=== PATIENT | male | born 1965 | race Caucasian/White ===

== ENCOUNTER 2017-04-23 00:36 | Inpatient (IN) | payer SELFPAY ==
[~2017-04-23] VITALS: Ht 175.3 cm; Wt 80.5 kg
[2017-04-23] VITALS (10 sets, daily range): BP systolic 113–147; BP diastolic 61–94; PULSE 82–115; RESP 14–22; TEMP 97.3–97.9; O2SAT 96–100
[2017-04-23 01:36] LABS: BILIRUBIN, URINE NEG (NEG); BLOOD, URINE NEG (NEG); GLUCOSE,URINE NEG (NEG); KETONE, URINE NEG (NEG); NITRITE,URINE NEG (NEG); URINE COLOR LIGHT-YELLOW (YELLW/STRAW); URINE LEUKOCYTE ESTERASE NEG (NEG)
--- NOTE | 2017-04-23 01:37 | PD ---
HPI Chief Complaint: Skin Problem Time Seen by Provider: 00:48 Travel History International Travel<30 days: No Contact w/Intl Traveler<30days: No Traveled to known affect area: No History of Present Illness HPI The patient is a 51 year old male who presents to the [facility] emergency department with a history of skin abscess to the right forearm that he first noticed 31/2-4 weeks ago. He denies ever having an MRSA skin infection in the past, however his girlfriend is currently admitted to the hospital with a severe MRSA skin infection involving both arms. The patient reports that over the last week he's had intermittent fevers with a MAXIMUM TEMPERATURE of 101. Patient reports that yesterday he had nausea and vomiting several times, however no vomiting today. He reports that 3-4 days ago he had diarrhea, however none since then. He denies having any chest pain, chest pressure, or shortness of breath. He reports that he does use IV drugs. His last use was Dilaudid yesterday. He denies ever being diagnosed with hepatitis C or HIV. The patient reports that he also has an alcohol abuse problem. He reports that he drinks between 3 and 8 pints of beer daily. On review of systems, the patient denies having any cough or congestion, neck pain, abdominal pain, or neurologic symptoms. The patient reports that he has been intermittently experiencing urinary hesitancy and dysuria. 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 He reports that the medial one near his elbow was improving, however the one along the ventral forearm has greatly worsened and is draining a yellow drainage. He reports that he has increased edema to the forearm. [facility] Past Medical History Narrative Medical the patient's past medical history is significant for bipolar disorder, posttraumatic stress disorder, substance abuse, traumatic brain injury 2 alcohol abuse. Bipolar Disorder: Yes Medical other: Yes (HYPOGLYCEMIA) Musculoskeletal: Yes (SKULL FX) Neurologic: Yes Tetanus Vaccination: > 5 Years Past Surgical History Surgical History: No Previous Surgery Social History Alcohol Use: Yes (2-8 PINTS [employer] DAILY) Tobacco Use: Yes (2PPD) Substance Use: Yes (HEROIN/DILAUDID IV ) Allergies-Medications (Allergen,Severity, Reaction): Coded Allergies: No Known Allergies (Unverified , 04/23/17) Review of Systems Except as stated in HPI: all other systems reviewed are Neg General / Constitutional: Positive: Fever Eyes: No: Visual changes HENT: No: Headaches Cardiovascular: No: Chest Pain or Discomfort, Dyspnea on exertion Respiratory: No: Shortness of Breath Gastrointestinal: Positive: Nausea, Vomiting, Diarrhea, No: Abdominal Pain Genitourinary: No: Dysuria Musculoskeletal: Positive: Edema, Pain Skin: Positive Rash Neurologic: No: Weakness, Focal Abnormalities, Change in Mentation, Slurred Speech, Sensory Disturbance Psychiatric: No: Depression Endocrine: No: Polydipsia Hematologic/Lymphatic: No: Easy Bruising Physical Exam Narrative General: The patient is a well-developed well-nourished male in no acute distress. Head and Neck exam: Head is normocephalic atraumatic. Eyes: EOMI, pupils are equal round and reactive to light. Nose: Midline septum with pink mucous membranes Mouth: Dentition unremarkable. Moist mucus membranes. Posterior oropharynx is not erythematous. No tonsillar hypertrophy. Uvula midline. Airway patent. Neck: No palpable lymphadenopathy. No nuchal rigidity. No thyromegaly. Cardiovascular: Sinus tachycardia in the 1 teens without murmurs, gallops, or rubs. No pulse deficit to the extremities on simultaneous auscultation and palpation of his radial artery. Lungs: Clear to auscultation bilaterally. No wheezes, rhonchi, or rales. Abdomen: Soft, without tenderness to palpation in all 4 quadrants of the abdomen. No guarding, rebound, or rigidity. Normal bowel sounds are audible. No tenderness on palpation of McBurney's point. Extremities: No clubbing, cyanosis, or edema, except an area of interest, the right upper extremity there is noted to be edema. The patient also has erythema of the forearm with warmth and tenderness on palpation. The patient has a dirty bandage noted to be in place. This was removed. The patient was noted to have a long the ventral forearm an opening that is approximately 2 cm with purulent drainage. This was cultured. The patient additionally along the medial aspect of the forearm near the elbow has a 1 cm wound that is draining. Both of these sites he reports that he incised and drained yesterday. 2+ pulses in all 4 extremities. The patient's compartments are soft on palpation. Back: No spinous process tenderness to palpation. No costovertebral angle tenderness to palpation. Neurologic Exam: Grossly nonfocal. Skin Exam: No other rash noted. Intact skin that is warm and dry. Data Data Last Documented VS Vital Signs Date Time Temp Pulse Resp B/P (MAP) Pulse Ox O2 Delivery O2 Flow Rate FiO2 04/23/17 03:00 97 16 113/62 (79) 97 Room Air 04/23/17 00:37 97.9 Orders Orders Complete Blood Count With Diff (04/23/17 01:06) Comprehensive Metabolic Panel (04/23/17 01:06) Prothrombin Time / Inr (Pt) (04/23/17 01:06) Act Partial Throm Time (Ptt) (04/23/17 01:06) Blood Culture (04/23/17 01:06) C-Reactive Protein (Crp) (04/23/17 01:06) Lipase (04/23/17 01:06) Urinalysis - C+S If Indicated (04/23/17 01:06) Magnesium (Mg) (04/23/17 01:06) Wound Culture And Gram Stain (04/23/17 01:06) Chest, Single Ap (04/23/17 01:06) Iv Access Insert/Monitor (04/23/17 01:06) Ecg Monitoring (04/23/17 01:06) Oximetry (04/23/17 01:06) Drug Screen, Random Urine (04/23/17 01:06) Alcohol (Ethanol) (04/23/17 01:06) Lactic Acid Sepsis Protocol (04/23/17 02:32) Piperacil-Tazo 3.375 Gm Premix (Zosyn 3. (04/23/17 02:45) Vancomycin Inj (Vancomycin Inj) (04/23/17 02:45) Sodium Chlor 0.9% 1000 Ml Inj (Ns 1000 M (04/23/17 02:45) Vancomycin Inj (Vancomycin Inj) (04/23/17 03:00) Admit Order (Ed Use Only) (04/23/17 03:29) Labs Laboratory Tests Test 04/23/17 01:10 04/23/17 02:45 White Blood Count 16.2 TH/MM3 Red Blood Count 4.93 MIL/MM3 Hemoglobin 15.2 GM/DL Hematocrit 44.0 % Mean Corpuscular Volume 89.3 FL Mean Corpuscular Hemoglobin 30.9 PG Mean Corpuscular Hemoglobin Concent 34.6 % Red Cell Distribution Width 14.3 % Platelet Count 270 TH/MM3 Mean Platelet Volume 8.3 FL Neutrophils (%) (Auto) 85.9 % Lymphocytes (%) (Auto) 7.5 % Monocytes (%) (Auto) 5.7 % Eosinophils (%) (Auto) 0.5 % Basophils (%) (Auto) 0.4 % Neutrophils # (Auto) 13.9 TH/MM3 Lymphocytes # (Auto) 1.2 TH/MM3 Monocytes # (Auto) 0.9 TH/MM3 Eosinophils # (Auto) 0.1 TH/MM3 Basophils # (Auto) 0.1 TH/MM3 CBC Comment DIFF FINAL Differential Comment Prothrombin Time 10.4 SEC Prothromb Time International Ratio 1.0 RATIO Activated Partial Thromboplast Time 28.9 SEC Urine Color LIGHT-YELLOW Urine Turbidity CLEAR Urine pH 7.0 Urine Specific [place] 1.001 Urine Protein NEG mg/dL Urine Glucose (UA) NEG mg/dL Urine Ketones NEG mg/dL Urine Occult Blood NEG Urine Nitrite NEG Urine Bilirubin NEG Urine Urobilinogen LESS THAN 2.0 MG/DL Urine Leukocyte Esterase NEG Microscopic Urinalysis Comment CULT NOT INDICATED Blood Urea Nitrogen 6 MG/DL Creatinine 0.69 MG/DL Random Glucose 83 MG/DL Total Protein 7.2 GM/DL Albumin 3.0 GM/DL Calcium Level 8.1 MG/DL Magnesium Level 2.2 MG/DL Alkaline Phosphatase 112 U/L Aspartate Amino Transf (AST/SGOT) 30 U/L Alanine Aminotransferase (ALT/SGPT) 25 U/L Total Bilirubin 0.3 MG/DL Sodium Level 142 MEQ/L Potassium Level 3.4 MEQ/L Chloride Level 107 MEQ/L Carbon Dioxide Level 28.4 MEQ/L Anion Gap 7 MEQ/L Estimat Glomerular Filtration Rate 121 ML/MIN Protein Corrected Calcium 8.1 MG/DL C-Reactive Protein 17.20 MG/DL Lipase 160 U/L Urine Opiates Screen NEG Urine Barbiturates Screen NEG Urine Amphetamines Screen NEG Urine Benzodiazepines Screen NEG Urine Cocaine Screen NEG Urine Cannabinoids Screen NEG Ethyl Alcohol Level 91 MG/DL Lactic Acid Level 1.3 mmol/L [facility] Medical Decision Making Medical Screen Exam Complete: Yes Emergency Medical Condition: Yes Medical Record Reviewed: Yes Differential Diagnosis Cellulitis with abscess, versus draining abscess, versus MRSA, versus sepsis, versus bacteremia, versus compartment syndrome Narrative Course During the course of the patients emergency department visit, the patients history, examination, and differential diagnosis were reviewed with the patient. The patient was placed on a cafeteria monitor with oximetry and frequent blood pressure monitoring. The patient had IV access obtained and blood work sent for analysis. The patient was initially provided Zosyn and vancomycin IV, normal saline IV fluids The patients laboratory studies were reviewed and remarkable for a white count of 16.2, hemoglobin 15.2, platelets 270 with 85.9 neutrophils, CMP is remarkable for potassium of 3.4, BUN 6, calcium 8.1, C-reactive protein is 17.2 , lipase 160, PT 10.4, PTT 28.9, urinalysis is unremarkable, urine drug screen is negative, alcohol level XCI Radiology studies were reviewed and remarkable for a chest x-ray that shows mild cardiomegaly, no other acute cardiopulmonary disease. The patients results were discussed with the patient, including the plan of care. I explained that further testing and/ or monitoring is indicated based on the patients history, examination, and/ or laboratory findings. Therefore, I recommended admission for additional evaluation. The patient expressed understanding and was agreeable with this plan. The patient was admitted to the hospital in stable condition and sent to a bed under the care of the [facility] service. Sepsis Criteria SIRS Criteria (2 or more): Heart rate over 90, WBC > 89734, < 4000 or > 10% bands Sepsis Criteria (SIRS+source): Infect source susp/known Criteria Outcome: Meets SIRS criteria, Meets sepsis criteria Physician Communication Physician Communication The patient's case including history, pertinent physical examination findings, and laboratory studies were discussed with Dr. Avila. It was agreed that the patient would be admitted to the [facility] service. Diagnosis Primary Impression: Abscess Additional Impressions: Sepsis Qualified Codes: A41.9 - Sepsis, unspecified organism Cellulitis Qualified Codes: L03.113 - Cellulitis of right upper limb Admitting Information Admitting Physician Requests: it Yenifer Moreno MD Apr 23, 2017 01:37
[2017-04-23 01:41] LABS: AUTOMATED NEUTROPHIL # 13.9 TH/MM3 (1.8-7.7); BASOPHIL # 0.1 TH/MM3 (0-0.2); BASOPHIL % 0.4 % (0.0-2.0); EOSINOPHIL # 0.1 TH/MM3 (0-0.4); EOSINOPHIL % 0.5 % (0.0-4.0); HEMOGLOBIN 15.2 GM/DL (13.0-17.0); LYMPH % 7.5 % (9.0-44.0); LYMPHOCYTE # 1.2 TH/MM3 (1.0-4.8); MEAN CELL VOLUME 89.3 FL (80.0-100.0); MEAN CORPUSCULAR HEMOGLOBIN 30.9 PG (27.0-34.0); MEAN CORPUSCULAR HGB CONC 34.6 % (32.0-36.0); MEAN PLATELET VOLUME 8.3 FL (7.0-11.0); MONO % 5.7 % (0.0-8.0); MONOCYTE # 0.9 TH/MM3 (0-0.9); NEUT % 85.9 % (16.0-70.0); PLATELET COUNT 270 TH/MM3 (150-450); RED BLOOD COUNT 4.93 MIL/MM3 (4.50-5.90); RED CELL DISTRIBUTION WIDTH 14.3 % (11.6-17.2); WHITE BLOOD COUNT 16.2 TH/MM3 (4.0-11.0)
[2017-04-23 01:47] LABS: PROTHROMBIN TIME - PATIENT 10.4 SEC (9.8-11.6)
--- NOTE | 2017-04-23 01:47 | RADRPT ---
EXAM DATE/TIME: 04/23/2017 01:19 [place] COMPARISON: No previous studies available for comparison. INDICATIONS : Fever after lancing abscess at home MEDICAL HISTORY : MRSA SURGICAL HISTORY : None. ENCOUNTER: Initial ACUITY: 1 day PAIN SCORE: 7/10 LOCATION: Bilateral chest FINDINGS: The heart size is mildly enlarged. The lungs are grossly clear. No effusion is seen. CONCLUSION: Mild cardiomegaly. Luis Carlos Mcgovern MD on April 23, 2017 at 1:44 Board Certified Radiologist. This report was verified electronically.
[2017-04-23 01:49] LABS: ALT (GPT) 25 U/L (12-78); AST (GOT) 30 U/L (15-37); BICARBONATE 28.4 MEQ/L (21.0-32.0); BLOOD UREA NITROGEN 6 MG/DL (7-18); CALCIUM 8.1 MG/DL (8.5-10.1); CHLORIDE 107 MEQ/L (98-107); CREATININE 0.69 MG/DL (0.60-1.30); GLOMERULAR FILTRATION RATE 121 ML/MIN (>89); GLUCOSE,RANDOM 83 MG/DL (74-106); LIPASE 160 U/L (73-393); MAGNESIUM 2.2 MG/DL (1.5-2.5); SODIUM (NA) 142 MEQ/L (136-145)
[2017-04-23 01:53] LABS: ALKALINE PHOSPHATASE 112 U/L (45-117); TOTAL BILIRUBIN ADULT 0.3 MG/DL (0.2-1.0); TOTAL PROTEIN 7.2 GM/DL (6.4-8.2)
[2017-04-23] MEDS ORDERED: VANCOMYCIN INJ 200 ML IV SCH (02:45)
[2017-04-23] MEDS ORDERED: VANCOMYCIN INJ 200 ML IV ONE (02:45)
[2017-04-23] MEDS ORDERED: SODIUM CHLOR 0.9% 1000 ML INJ 1,000 ML IV ONE (02:45)
[2017-04-23] MEDS ORDERED: PIPERACIL-TAZO 3.375 GM PREMIX 50 ML IV ONE (02:45)
[2017-04-23] MEDS ORDERED: VANCOMYCIN 1,000 MG/NS 250 ML IV ONE ×2 (03:00)
[2017-04-23] MEDS ORDERED: LORazepam 2 MG TAB PO PRN (03:45)
[2017-04-23] MEDS ORDERED: MAGNESIUM HYDROXIDE SUSP 30 ML CUP PO PRN (03:45)
[2017-04-23] MEDS ORDERED: BISACODYL 10 MG SUPP RECTAL PRN (03:45)
[2017-04-23] MEDS ORDERED: HALOPERIDOL LACTATE 5 MG/ML AMP IM PRN (03:45)
[2017-04-23] MEDS ORDERED: SODIUM CHLORIDE 0.9% FLUSH 10 ML FLUSH IV FLUSH PRN (03:45)
[2017-04-23] MEDS ORDERED: LACTULOSE SYRUP 20 GM/30 ML CUP PO PRN (03:45)
[2017-04-23] MEDS ORDERED: LORazepam 1 MG TAB PO PRN (03:45)
[2017-04-23] MEDS ORDERED: FLUMAZENIL 0.5 MG/5 ML VIAL IV PUSH PRN (03:45)
[2017-04-23] MEDS ORDERED: ONDANSETRON HCL 4 MG/2 ML VIAL IVP PRN (03:45)
[2017-04-23] MEDS ORDERED: SENNOSIDES 8.6 MG TAB PO PRN (03:45)
[2017-04-23] MEDS ORDERED: LORazepam 2 MG/ML VIAL IV PUSH PRN ×4 (03:45)
[2017-04-23] MEDS ORDERED: ACETAMINOPHEN 325 MG TAB PO PRN (03:45)
[2017-04-23] MEDS ORDERED: Vancomycin Consult Pharmacy 1 EA OTHER SCH (03:45)
--- NOTE | 2017-04-23 04:37 | HHI.HP ---
[facility] No Primary Care Physician Admission Diagnosis right arm cellulitis with draining abscess Diagnoses: (1) Sepsis Diagnosis: Principal (2) Abscess Diagnosis: Principal (3) IVDU (intravenous drug user) Diagnosis: Principal (4) Alcohol abuse Diagnosis: Principal (5) Tobacco abuse Diagnosis: Principal Travel History International Travel<30 Days: No Contact w/Intl Traveler <30 Da: No Traveled to Known Affected Are: No History of Present Illness This is a 51-year-old Homeless male with a PMH of Bipolar Disorder, Alcohol Abuse, Tobacco Abuse and IVDU who presented to the ER with complaints of right arm abscess. States abscess present for approx 3 wks, girlfriend w/ similar symptoms is currently admitted for MRSA. Cannot recall if he injected drugs at that site, last IVDU yesterday. States pain/swelling has gotten progressively worse, now w/ Temp 101.0. Pain constant, severe, 8/10, non-radiating. 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 On arrival, BP 134/89, HR 1:15, O2 sat 100% on RA , Afebrile. W WBC 16.2. Chemistry essentially unremarkable except for elevated CRP. Lactic Acid normal. Her 1.0. UA negative. Urine Drug Screen negative. Alcohol 91. CXR with mild cardiomegaly. S/p Blood Cultures, Vanc/ Zosyn in ER. Review of Systems Except as stated in HPI: all other systems reviewed are Neg ROS: 14 point review of systems otherwise negative. Past Family Social History Past Medical History PMH: Bipolar Disorder, Alcohol Abuse, Tobacco Abuse and IVDU Past Surgical History PAST SURGICAL HISTORY: None Allergies: Coded Allergies: No Known Allergies (Unverified , 04/23/17) Family History PAST FAMILY HISTORY: Reviewed. No h/o DM or CAD Social History PAST SOCIAL HISTORY: Drinks 2-8 Pints of beer per day. Smokes 2ppd. +IVDU w/ Heroin/Dilaudid. Physical Exam Vital Signs Vital Signs Date Time Temp Pulse Resp B/P (MAP) Pulse Ox O2 Delivery O2 Flow Rate FiO2 04/23/17 03:00 97 16 113/62 (79) 97 Room Air 04/23/17 02:00 100 16 115/67 (83) 96 Room Air 04/23/17 00:37 97.9 115 18 134/89 (104) 100 Room Air Physical Exam PE: GENERAL: Middle-aged white male in no acute distress. +facial sunburn. HEENT: PERRLA, EOMI. No scleral icterus or conjunctival pallor. No lid lag or facial droop. CARDIOVASCULAR: Regular rate and rhythm. No obvious murmurs to auscultation. No chest tenderness to palpation. RESPIRATORY: No obvious rhonchi or wheezing. Clear to auscultation. Breath sounds equal bilaterally. GASTROINTESTINAL: Abdomen soft, non-tender, nondistended. BS normal. MUSCULOSKELETAL: Extremities without clubbing, cyanosis, or edema. No obvious deformities. RUE w/ open wound to forearm, purulent drainage, surrounding erythema/edema. LUE w/ erythematous induration to forearm, surrounding edema. Pulses intact. NEUROLOGICAL: Awake, alert and oriented x4. No focal neurologic deficits. Moving both upper and lower extremities spontaneously. Laboratory Laboratory Tests Test 04/23/17 01:10 04/23/17 02:45 White Blood Count 16.2 Red Blood Count 4.93 Hemoglobin 15.2 Hematocrit 44.0 Mean Corpuscular Volume 89.3 Mean Corpuscular Hemoglobin 30.9 Mean Corpuscular Hemoglobin Concent 34.6 Red Cell Distribution Width 14.3 Platelet Count 270 Mean Platelet Volume 8.3 Neutrophils (%) (Auto) 85.9 Lymphocytes (%) (Auto) 7.5 Monocytes (%) (Auto) 5.7 Eosinophils (%) (Auto) 0.5 Basophils (%) (Auto) 0.4 Neutrophils # (Auto) 13.9 Lymphocytes # (Auto) 1.2 Monocytes # (Auto) 0.9 Eosinophils # (Auto) 0.1 Basophils # (Auto) 0.1 CBC Comment DIFF FINAL Differential Comment Prothrombin Time 10.4 Prothromb Time International Ratio 1.0 Activated Partial Thromboplast Time 28.9 Urine Color LIGHT-YELLOW Urine Turbidity CLEAR Urine pH 7.0 Urine Specific [place] 1.001 Urine Protein NEG Urine Glucose (UA) NEG Urine Ketones NEG Urine Occult Blood NEG Urine Nitrite NEG Urine Bilirubin NEG Urine Urobilinogen LESS THAN 2.0 Urine Leukocyte Esterase NEG Microscopic Urinalysis Comment CULT NOT INDICATED Blood Urea Nitrogen 6 Creatinine 0.69 Random Glucose 83 Total Protein 7.2 Albumin 3.0 Calcium Level 8.1 Magnesium Level 2.2 Alkaline Phosphatase 112 Aspartate Amino Transf (AST/SGOT) 30 Alanine Aminotransferase (ALT/SGPT) 25 Total Bilirubin 0.3 Sodium Level 142 Potassium Level 3.4 Chloride Level 107 Carbon Dioxide Level 28.4 Anion Gap 7 Estimat Glomerular Filtration Rate 121 C-Reactive Protein 17.20 Lipase 160 Urine Opiates Screen NEG Urine Barbiturates Screen NEG Urine Amphetamines Screen NEG Urine Benzodiazepines Screen NEG Urine Cocaine Screen NEG Urine Cannabinoids Screen NEG Ethyl Alcohol Level 91 Lactic Acid Level 1.3 Date/Time Source Procedure Growth Status 04/23/17 01:20 Blood Peripheral Aerobic Blood Culture Pending Received 04/23/17 01:20 Blood Peripheral Anaerobic Blood Culture Pending Received 04/23/17 01:20 Wound Arm Gram Stain Pending Received 04/23/17 01:20 Wound Arm Wound Culture Pending Received Result Diagram: 04/23/1710904/23/17 0110 Caprini VTE Risk Assessment Caprini VTE Risk Assessment: No/Low Risk (score <= 1) Caprini Risk Assessment Model Point Value = 1 Point Value = 2 Point Value = 3 Point Value = 5 Age 41-60 Minor surgery BMI > 25 kg/m2 Swollen legs Varicose veins or History of unexplained or recurrent spontaneous Oral contraceptives or hormone replacement Sepsis (< 1 month) Serious lung disease, including pneumonia (< 1 month) Abnormal pulmonary function Acute myocardial infarction Congestive heart failure (< 1 month) History of inflammatory bowel disease Medical patient at bed rest Age 61-74 Arthroscopic surgery Major open surgery (> 45 min) Laparoscopic surgery (> 45 min) Malignancy Confined to bed (> 72 hours) Immobilizing plaster cast Central venous access Age >= 75 History of VTE Family history of VTE Factor V Leiden Prothrombin [id number] Lupus anticoagulant Anticardiolipin antibodies Elevated serum homocysteine Heparin-induced thrombocytopenia Other congenital or acquired thrombophilia Stroke (< 1 month) Elective arthroplasty Hip, pelvis, or leg fracture Acute spinal cord injury (< 1 month) Prophylaxis Regimen Total Risk Factor Score Risk Level Prophylaxis Regimen 0-1 Low Early ambulation 2 Moderate Order ONE of the following: *Sequential Compression Device (SCD) *Heparin 5000 units SQ BID 3-4 Higher Order ONE of the following medications: *Heparin 5000 units SQ TID *Enoxaparin/Lovenox 40 mg SQ daily (WT < 150 kg, CrCl > 30 mL/min) *Enoxaparin/Lovenox 30 mg SQ daily (WT < 150 kg, CrCl > 10-29 mL/min) *Enoxaparin/Lovenox 30 mg SQ BID (WT < 150 kg, CrCl > 30 mL/min) AND/OR *Sequential Compression Device (SCD) 5 or more Highest Order ONE of the following medications: *Heparin 5000 units SQ TID (Preferred with Epidurals) *Enoxaparin/Lovenox 40 mg SQ daily (WT < 150 kg, CrCl > 30 mL/min) *Enoxaparin/Lovenox 30 mg SQ daily (WT < 150 kg, CrCl > 10-29 mL/min) *Enoxaparin/Lovenox 30 mg SQ BID (WT < 150 kg, CrCl > 30 mL/min) AND *Sequential Compression Device (SCD) Assessment and Plan Problem List: (1) Sepsis ICD Code: A41.9 - Sepsis, unspecified organism (2) Abscess ICD Code: L02.91 - Cutaneous abscess, unspecified (3) Alcohol abuse ICD Code: F10.10 - Alcohol abuse, uncomplicated (4) IVDU (intravenous drug user) ICD Code: F19.90 - Other psychoactive substance use, unspecified, uncomplicated (5) Tobacco abuse ICD Code: Z72.0 - Tobacco use Assessment and Plan A/P: 1. Sepsis: Temp 101.0, HR 115, WBC 16.2, Source-RUE Abscess. S/p Blood/Wound Cultures, Vanc/Zosyn in ER. Follow up cultures, continue w/ IV Abx, IVF for hydration. 2. Abscess: RUE abscess, s/p I&D by patient, +purulent drainage, follow up cultures. LUE forearm w/ area of erythema/induration, not amenable to I&D at this time. Continue w/ IV Abx, Consult Gen Sx as needed for further I&D 3. Alcohol Abuse: Drinks 2-8 pints of beer/day. High risk for withdrawal. CIWA, Seizure Precautions, MVT/Thiamine/Folate 4. IVDU: last use yesterday, however UDS negative. Ativan prn for withdrawal. 5. Tobacco Abuse: Pt counselled. NicoDerm prn 6. DVT Prophylaxis: SCD/Teds. 7. Social work for DC planning as needed. 8. Case discussed at length with ER physician, labs/imaging/records reviewed by me. Physician Certification 2 Midnight Certification Type: Admission for Inpatient Services Order for Inpatient Services The services are ordered in accordance with Medicare regulations or non- Medicare payer requirements, as applicable. In the case of services not specified as inpatient-only, they are appropriately provided as inpatient services in accordance with the 2-midnight benchmark. Estimated LOS (days): 2 days is the estimated time the patient will need to remain in the hospital, assuming treatment plan goals are met and no additional complications. Post-Hospital Plan: Not yet determined Jocelyn Avila MD Apr 23, 2017 04:37
[2017-04-23] MEDS: SODIUM CHLOR 0.9% 1000 ML INJ 1,000 ML IV SCH ×3 (04:59→16:50)
[2017-04-23] MEDS: cloNIDine HCL 0.1 MG TAB PO SCH ×2 (06:00→13:53)
[2017-04-23] MEDS: DOCUSATE SODIUM 50 MG/SENNA 8.6 MG TAB PO SCH ×2 (09:00→20:14)
[2017-04-23] MEDS ORDERED: POTASSIUM CHLORIDE 10 MEQ CONTROLLED RELEASE TAB PO ONE (09:00)
[2017-04-23] MEDS: SODIUM CHLORIDE 0.9% FLUSH 10 ML FLUSH IV FLUSH SCH ×2 (09:00→20:14)
[2017-04-23] MEDS ORDERED: CEFEPIME INJ 1,000 MG in SODIUM CHLORIDE 0.9% INJ 100 ML IV SCH (09:00)
[2017-04-23] MEDS: FOLIC ACID 1 MG TAB PO SCH (09:51)
[2017-04-23] MEDS: MULTIVITAMINS/MINERALS THERAPEUTIC TAB PO SCH (09:51)
[2017-04-23] MEDS: THIAMINE HCL 100 MG TAB PO SCH (09:52)
[2017-04-23 10:53] LABS: CALCIUM 8.1 MG/DL (8.5-10.1); CALCIUM-PROTEIN CORRECTED 8.1 MG/DL (8.5-10.1); TOTAL PROTEIN 7.2 GM/DL (6.4-8.2)
[2017-04-23] MEDS: NICOTINE 21 MG/24 HR PATCH T-DERMAL PRN (11:47)
[2017-04-23] MEDS: PIPERACIL-TAZO 4.5 GM PREMIX 100 ML IV SCH ×2 (13:53→20:14)
--- NOTE | 2017-04-23 14:26 | HHI.PR ---
Subjective Remarks Follow-up on patient with right forearm abscess. Patient seen and examined. Patient admits to IV drug use last used on Sunday. He is unsure whether or not he injected himself in his arm over the area of abscess. He is complaining of pain, swelling and redness in the right arm. Reports feeling feverish. Patient states he performed his own I&D of the right forearm with purulent drainage from the wound. Patient denies any chest pain or shortness of breath. Denies any nausea or vomiting. Objective Vitals Vital Signs Date Time Temp Pulse Resp B/P (MAP) Pulse Ox O2 Delivery O2 Flow Rate FiO2 04/23/17 13:30 88 18 147/94 (111) 98 Room Air 04/23/17 13:08 18 04/23/17 08:26 88 18 114/63 (80) 98 Room Air 04/23/17 07:26 91 18 114/82 (93) 97 Room Air 04/23/17 06:42 91 14 114/61 (78) 98 Room Air 04/23/17 03:00 97 16 113/62 (79) 97 Room Air 04/23/17 02:00 100 16 115/67 (83) 96 Room Air 04/23/17 00:37 97.9 115 18 134/89 (104) 100 Room Air I/O 04/22/17 04/22/17 04/22/17 04/23/17 04/23/17 04/23/17 06:59 14:59 22:59 06:59 14:59 22:59 Intake Total 1300 ml Balance 1300 ml Intake IV Total 1300 ml Result Diagram: 04/23/17 0110 04/23/17 0110 Imaging Last Impressions Chest X-Ray 04/23/17 0106 Signed Impressions: Service Date/Time: Sunday, April 23, 2017 01:19 - CONCLUSION: Mild cardiomegaly. Luis Carlos Mcgovern MD Objective Remarks GENERAL: Well-nourished, well-developed male patient in NAD. Awake and alert. SKIN: Warm and dry. HEAD: Normocephalic. Atraumatic. EYES: EOMI. No scleral icterus. No injection or drainage. ENT: No nasal bleeding or discharge. Mucous membranes pink and moist. NECK: Supple. Trachea midline. CARDIOVASCULAR: Regular rate and rhythm. S1, S2 noted. No murmur appreciated. RESPIRATORY: Nonlabored. Coarse BS. GASTROINTESTINAL: Abdomen soft, non-tender, nondistended. Normoactive bowel sounds x4. MUSCULOSKELETAL: No obvious deformities. Right forearm diffusely edematous extending into the digits of the right hand. 3 x 3 cm open wound noted on the volar aspect of right forearm with purulent drainage, warmth and surrounding erythema extending into the right hand. Patient is also noted to have a 2x2cm area of induration on the volar aspect of the left forearm which is erythematous , edematous and warm to touch. NEUROLOGICAL: Awake and alert. No obvious cranial nerve deficits. Motor grossly within normal limits. 5/5 muscle strength in bilateral upper and lower extremities. Normal speech. PSYCHIATRIC: Appropriate mood and affect. Medications and IVs Current Medications Medications (Trade) Dose Ordered Sig/Maxwell Route Start Time Stop Time Status Last Admin (Folate) 1 mg DAILY PO 04/23/17 09:00 04/28/17 08:59 04/23/17 09:51 (Vitamin B1) 100 mg DAILY PO 04/23/17 09:00 04/23/17 09:52 (Theragran M Tab) 1 tab DAILY PO 04/23/17 09:00 04/28/17 08:59 04/23/17 09:51 (Romazicon Inj) 0.2 mg Q1M PRN IV PUSH 04/23/17 03:45 (Ativan) 1 mg Q4H PRN PO 04/23/17 03:45 04/23/17 11:44 (Ativan Inj) 1 mg Q4H PRN IV PUSH 04/23/17 03:45 (Ativan) 2 mg Q2H PRN PO 04/23/17 03:45 (Ativan Inj) 2 mg Q2H PRN IV PUSH 04/23/17 03:45 (Ativan Inj) 2 mg Q1H PRN IV PUSH 04/23/17 03:45 (Ativan Inj) 2 mg Q15M PRN IV PUSH 04/23/17 03:45 (Haldol Inj) 2 mg Q15M PRN IM 04/23/17 03:45 (Catapres) 0.1 mg Q8HR PO 04/23/17 06:00 04/23/17 13:53 Pharmacy Profile Note 0 ml @ 0 mls/hr UNSCH OTHER 04/23/17 03:45 Cefepime HCl 1000 mg/Sodium Chloride 100 ml @ 200 mls/hr Q12H IV 04/23/17 09:00 04/23/17 09:51 Sodium Chloride 1,000 ml @ 100 mls/hr Q10H IV 04/23/17 03:42 04/23/17 04:59 (NS Flush) 2 ml UNSCH PRN IV FLUSH 04/23/17 03:45 (NS Flush) 2 ml BID IV FLUSH 04/23/17 09:00 (Zofran Inj) 4 mg Q6H PRN IVP 04/23/17 03:45 (Tylenol) 650 mg Q6H PRN PO 04/23/17 03:45 (Roxicodone) 10 mg Q4H PRN PO 04/23/17 03:45 (Roxicodone) 5 mg Q4H PRN PO 04/23/17 03:45 04/23/17 11:45 (Elaine-Colace) 1 tab BID PO 04/23/17 09:00 (Milk Of Magnesia Liq) 30 ml Q12H PRN PO 04/23/17 03:45 (Senokot) 17.2 mg Q12H PRN PO 04/23/17 03:45 (Dulcolax Supp) 10 mg DAILY PRN RECTAL 04/23/17 03:45 (Lactulose Liq) 30 ml DAILY PRN PO 04/23/17 03:45 (Habitrol 21 Mg Patch.24 Hr) 1 patch DAILY PRN T-DERMAL 04/23/17 04:00 04/23/17 11:47 Vancomycin HCl 1250 mg/Sodium Chloride 262.5 ml @ 250 mls/hr Q12H IV 04/23/17 16:00 Miscellaneous Information SPECIFIC LAB TO BE HUSAM... ONCE ONCE .XX 04/24/17 15:45 04/24/17 15:46 Piperacillin Sod/ Tazobactam Sod 100 ml @ 200 mls/hr Q6H IV 04/23/17 14:00 04/23/17 13:53 A/P Problem List: (1) Sepsis ICD Code: A41.9 - Sepsis, unspecified organism (2) Abscess ICD Code: L02.91 - Cutaneous abscess, unspecified (3) Alcohol abuse ICD Code: F10.10 - Alcohol abuse, uncomplicated (4) IVDU (intravenous drug user) ICD Code: F19.90 - Other psychoactive substance use, unspecified, uncomplicated (5) Tobacco abuse ICD Code: Z72.0 - Tobacco use Assessment and Plan Sepsis: Temp 101.0, HR 115, WBC 16.2, Source-RUE Abscess - follow up on blood/wound culture results - continue on IV abx with Vancomycin and Zosyn. Discontinue cefepime. - IVF for hydration. Abscess: RUE abscess, s/p I&D by patient, +purulent drainage LUE forearm w/ area of erythema/induration - Continue w/ IV Abx - Consult Hand surgery for possible I&D, appreciate assistance - Pain management with bowel regimen Hypokalemia: Mild - po repletion ordered - am labs to monitor Alcohol Abuse: Drinks 2-8 pints of beer/day. High risk for withdrawal. - CIWA, Seizure Precautions, MVT/Thiamine/Folate - Monitor for signs of withdrawal IVDU: last used 2 days ago, however UDS negative. - Ativan prn for withdrawal. - counselled on cessation Tobacco Abuse: - Pt counselled on cessation. - NicoDerm prn DVT Prophylaxis: SCD/Teds. Liss Ríos Apr 23, 2017 14:26
[2017-04-23] MEDS ORDERED: cloNIDine HCL 0.1 MG TAB PO PRN (14:30)
[2017-04-23] MEDS ORDERED: IOHEXOL 350 MG/ML 10 ML VIAL (for RAD DIAG) IVCONTRAST ONE (14:57)
--- NOTE | 2017-04-23 15:05 | RADRPT ---
EXAM DATE/TIME: 04/23/2017 14:23 [facility] COMPARISON: No previous studies available for comparison. INDICATIONS : Abscess right forearm. Patien has an open wound after opening abscess with razor blade. IV CONTRAST: 75 cc Omnipaque 350 (iohexol) IV RADIATION DOSE: 10.55 CTDIvol (mGy) MEDICAL HISTORY : Bipolar SURGICAL HISTORY : None. ENCOUNTER: Initial ACUITY: 3 weeks PAIN SCALE: 8/10 LOCATION: Right forearm TECHNIQUE: Volumetric scanning of the forearm was performed. Using automated exposure control and adjustment of the mA and/or kV according to patient size, radiation dose was kept as low as reasonably achievable to obtain optimal diagnostic quality images. DICOM format image data is available electronically fo r review and comparison. FINDINGS: The examination demonstrates extensive cellulitic changes along the entirety of the forearm both ante riorly and posteriorly. There is a small soft tissue defect just below the level of antecubital fossa . There is no discrete, defined abscess identified. Of note, there is partial thrombosis of the radia l vein beneath the soft tissue defect. The osseous structures of the forearm are intact. CONCLUSION: 1. There is extensive edema and likely cellulitis. No discrete, defined abscess is seen. Note is made of a soft tissue defect just below the level of antecubital fossa with partial thrombosis of the rad ial vein. Francis Dudley MD on April 23, 2017 at 14:59 Board Certified Radiologist. This report was verified electronically.
[2017-04-23] MEDS: VANCOMYCIN INJ 1,250 MG in SODIUM CHLOR 0.9% 250 ML INJ 250 ML IV SCH (16:49)
--- NOTE | 2017-04-23 20:53 | MB ---
cc: PATY CLIFTON M.D., CAMILLE MD DATE OF CONSULTATION: 04/23/2017 REASON FOR CONSULTATION: Bilateral forearm abscess. REFERRING PHYSICIAN: Dr. Avila. HISTORY OF PRESENT ILLNESS The patient is a 51-year-old male with history of bipolar disorder, substance abuse who admitted to injecting heroin recently. The patient developed abscesses and was seen in the emergency room and admitted. Consultation is requested regarding evaluation and treatment of the abscesses. The patient does admit to draining the one on his right forearm himself. PAST MEDICAL HISTORY Bipolar disorder. Post-traumatic stress disorder. SOCIAL HISTORY: The patient apparently drinks 2 to 8 packs of beer per day, smokes two packs of cigarettes per day and injects substances into his veins. PAST SURGICAL HISTORY: Denied. ALLERGIES: NONE. FAMILY HISTORY: Noncontributory. PHYSICAL EXAMINATION: The patient is lying comfortably in bed. VITAL SIGNS: His temperature is 97.3, pulse of 82, respiratory rate 18, blood pressure is 142/82. Pulse oximetry is 100% on room air. LABORATORY DATA: White count on admission today was 16.2 with a shift and absolute neutrophils 13,900. Chemistry shows an albumin of 3.0, blood was positive for ethyl alcohol. Urine screen was negative for opiates. INR 1.0. Extraocular movements intact. Pupils are equal, round and reactive to light. Mouth is clear. NECK: Supple without masses. LUNGS: Clear. HEART: Regular rate and rhythm without any murmurs. UPPER EXTREMITIES: Reveals swelling moderate to severe of the right forearm proximally, approximately 8 cm distal to the flexion crease of his elbow. On the volar surface there is a draining wound with pus actively coming through it. In addition, in the area of his cubital tunnel and just distal to it on the right side, there is a small abscess with areas of fluctuance. In addition, there is a superficial abscess, in the left upper extremity in the mid forearm, volar surface, centrally located. IMPRESSION The patient has three obvious abscesses involving both forearms. PLAN The patient will be taken to the operating room for incision and drainage of these abscesses as at least one of them is extremely deep and not amendable to drainage on the floor. The patient understands and accepts the risks and complications of the surgery as well as a need for insertion of packing. MD MILI Reyes/MARGOTH /5:00 PM /8:38 PM
[2017-04-24] VITALS: BP 131/68; PULSE 77; RESP 20; TEMP 98.4; O2SAT 98
[2017-04-24] MEDS: PIPERACIL-TAZO 4.5 GM PREMIX 100 ML IV SCH ×3 (01:43→14:30)
[2017-04-24] MEDS: VANCOMYCIN INJ 1,250 MG in SODIUM CHLOR 0.9% 250 ML INJ 250 ML IV SCH ×2 (05:26→16:51)
[2017-04-24] MEDS: SODIUM CHLOR 0.9% 1000 ML INJ 1,000 ML IV SCH (05:26)
[2017-04-24 08:00] VITALS: BP 138/72; PULSE 75; RESP 20; TEMP 96.9; O2SAT 98
[2017-04-24 08:36] LABS: AUTOMATED NEUTROPHIL # 7.7 TH/MM3 (1.8-7.7); BASOPHIL % 0.3 % (0.0-2.0); EOSINOPHIL # 0.1 TH/MM3 (0-0.4); EOSINOPHIL % 0.7 % (0.0-4.0); HEMATOCRIT 43.6 % (39.0-51.0); HEMOGLOBIN 14.9 GM/DL (13.0-17.0); LYMPH % 14.8 % (9.0-44.0); LYMPHOCYTE # 1.5 TH/MM3 (1.0-4.8); MEAN CELL VOLUME 90.3 FL (80.0-100.0); MEAN CORPUSCULAR HEMOGLOBIN 30.9 PG (27.0-34.0); MEAN CORPUSCULAR HGB CONC 34.2 % (32.0-36.0); MEAN PLATELET VOLUME 8.5 FL (7.0-11.0); MONO % 7.8 % (0.0-8.0); MONOCYTE # 0.8 TH/MM3 (0-0.9); NEUT % 76.4 % (16.0-70.0); PLATELET COUNT 351 TH/MM3 (150-450); RED BLOOD COUNT 4.83 MIL/MM3 (4.50-5.90); RED CELL DISTRIBUTION WIDTH 14.4 % (11.6-17.2); WHITE BLOOD COUNT 10.1 TH/MM3 (4.0-11.0)
[2017-04-24 09:00] LABS: ALBUMIN 2.7 GM/DL (3.4-5.0); AST (GOT) 19 U/L (15-37); BICARBONATE 26.7 MEQ/L (21.0-32.0); BLOOD UREA NITROGEN 4 MG/DL (7-18); CALCIUM 8.8 MG/DL (8.5-10.1); CHLORIDE 107 MEQ/L (98-107); CREATININE 0.67 MG/DL (0.60-1.30); GLOMERULAR FILTRATION RATE 125 ML/MIN (>89); GLUCOSE,RANDOM 88 MG/DL (74-106); SODIUM (NA) 141 MEQ/L (136-145)
[2017-04-24 09:02] LABS: ALT (GPT) 23 U/L (12-78)
[2017-04-24 09:04] LABS: ALKALINE PHOSPHATASE 100 U/L (45-117); TOTAL BILIRUBIN ADULT 0.4 MG/DL (0.2-1.0); TOTAL PROTEIN 6.9 GM/DL (6.4-8.2)
[2017-04-24] MEDS: MULTIVITAMINS/MINERALS THERAPEUTIC TAB PO SCH (09:25)
[2017-04-24] MEDS: DOCUSATE SODIUM 50 MG/SENNA 8.6 MG TAB PO SCH (09:25)
[2017-04-24] MEDS: SODIUM CHLORIDE 0.9% FLUSH 10 ML FLUSH IV FLUSH SCH (09:25)
[2017-04-24] MEDS: THIAMINE HCL 100 MG TAB PO SCH (09:26)
[2017-04-24] MEDS: FOLIC ACID 1 MG TAB PO SCH (09:26)
[2017-04-24] MEDS ORDERED: PNEUMOCOCCAL POLYVALENT INJ 25 MCG/0.5 ML SYR IM ONE (10:00)
[2017-04-24] MEDS ORDERED: INFLUENZA VIRUS VACCINE (QUADRIVALENT) 0.5 ML SYR IM ONE (10:00)
[2017-04-24] MEDS: NICOTINE 21 MG/24 HR PATCH T-DERMAL PRN (10:43)
[2017-04-24] MEDS ORDERED: BUPIVACAINE HCL PF 0.5% 30 ML VIAL ONE (11:19)
[2017-04-24] MEDS ORDERED: PROPOFOL 200 MG/20 ML AMP IV ONE (12:00)
[2017-04-24] MEDS ORDERED: LIDOCAINE HCL 1% PF 5 ML SYRINGE OTHER ONE (12:00)
[2017-04-24] MEDS ORDERED: DEXAMETHASONE SOD PHOS 4 MG/ML VIAL IV ONE (12:00)
[2017-04-24] MEDS ORDERED: ONDANSETRON HCL 4 MG/2 ML VIAL IV PUSH ONE (12:00)
[2017-04-24] MEDS ORDERED: KETOROLAC TROMETHAMINE 30 MG/ML (IVP) VIAL IV PUSH ONE (12:00)
[2017-04-24] MEDS ORDERED: LACTATED RINGER'S 1000 ML INJ 1,000 ML IV ONE (12:00)
[2017-04-24] MEDS ORDERED: GLYCOPYRROLATE 1 MG/5 ML SYRINGE IV PUSH ONE (12:00)
[2017-04-24] MEDS ORDERED: ePHEDrine/NS 25 MG/5 ML SYRINGE IV ONE (12:00)
[2017-04-24] MEDS ORDERED: SILVER SULFADIAZINE 1% CR 400 GM JAR TOPICAL ONE (13:00)
[2017-04-24] MEDS ORDERED: DEXT 5%-NACL 0.45% 1000 ML INJ 1,000 ML IV SCH (13:07)
--- NOTE | 2017-04-24 13:12 | HHI.PR ---
Immediate Post Op Note Procedure Date: Apr 24, 2017 Pre Op Diagnosis: (1) Abscess of forearm Post Op Diagnosis: (1) Abscess of forearm Surgeon: Ronda Altman Curing Room Supervisor(s): None Procedure: Incision and drainage of multiple abscesses of both forearms. Specimen(s) removed: Necrotic tissue of the right forearm Anesthesia: General Drains: Other (Iodoform) Tourniquet time (min at mmHg) NA Patient to: PACU Patient Condition: Good Date/Time of Procedure: SEE SURGICAL CARE RECORD Ronda Altman MD Apr 24, 2017 13:12
[2017-04-24] MEDS ORDERED: DO NOT ADM ANY ANTICOAGULANT DRUGS PRN (13:21)
[2017-04-24] MEDS ORDERED: MIDAZOLAM HCL 2 MG/2 ML VIAL ONE (13:29)
[2017-04-24] MEDS ORDERED: KETAMINE HCL 500 MG/5 ML VIAL ONE (13:30)
[2017-04-24] MEDS ORDERED: *RESP: ALBUTEROL 2.5 MG/3 ML NEB (PRN) PERIprocedural Use ONLY NEB ONE (13:36)
--- NOTE | 2017-04-24 14:31 | EKG ---
Date Performed: 04/24/2017 Time Performed: 07:11:29 PTAGE: 51 years EKG: Sinus rhythm VOLTAGE CRITERIA FOR LVH ABNORMAL ECG NO PREVIOUS TRACING DOCTOR: Odessa Razo Interpretating Date/Time 04/24/2017 14:30:15
--- NOTE | 2017-04-24 14:44 | MP ---
cc: PATY CLIFTON M.D. DATE OF SURGERY: 04/24/2017 PREOPERATIVE DIAGNOSIS: 1. Abscess of mid volar right forearm. 2. Abscess of proximal ulnar side of right forearm. 3. Abscess mid-left forearm. POSTOPERATIVE DIAGNOSIS: 1. Abscess of mid volar right forearm. 2. Abscess of proximal ulnar side of right forearm. 3. Abscess mid-left forearm. OPERATION: 1. Incision, drainage and debridement. Extensive abscess of the right mid forearm. 2. Incision and drainage of abscess of the right proximal ulnar forearm. 3. Incision and drainage of abscess of mid left forearm. ANESTHESIA: General. SURGEON: Paty Clifton MD. HISTORY: The patient is a 51 year-old male with history of IV drug abuse and the abscess as noted above. FINDINGS: The larger abscess had a significant amount of necrotic material which required debridement leaving a gap of approximately 3 cm in diameter the remaining two abscesses required incision and drainage and at the completion of the procedure all of the areas have been adequately debrided, they were getting packed. PROCEDURE: The patient was preoperatively sites and sides were identified and marked, the patient was then taken to the operating room and placed in the supine position, his identity was checked, against his arm and consent form, site and side were identified prior to the beginning of the procedure, both upper extremities were prepped and draped in usual sterile fashion. Attention was first turned to the right upper extremity. The larger abscess in the mid portion of his right forearm was explored with suction and all the purulent material was removed. It was obvious that there was an area approximately 3 cm in diameter which required debridement as the tissue was completely and this was done with scissors and forceps. Once this was completed the area was copiously irrigated with saline. Attention was then turned to the proximal abscess which was incised as in elliptical fashion approximately 1.2 cm in length. The pus was suctioned out and the wound was copiously irrigated with saline. The proximal smaller one was then packed with Iodoform packing and dressed with Sulfazine. Both had Telfa applied over the dry dress. Attention was then turned to the left forearm which had been already prepped and draped and a new 15 blade was used to make an elliptical incision after the skin, after the subcutaneous tissue there was a significant amount of purulent material which was removed and suctioned. Once this was completed the area was copiously irrigated with saline and packed with 0.25 inch iodoform packing, was then dressed with Betadine soaked Telfa. 4 x 4's and cling. The patient was then taken from the operating room to the Recovery Room in satisfactory condition having tolerated the procedure well. MD MILI Reyes/jeniffer /1:10 PM /1:16 PM
[2017-04-24] MEDS ORDERED: PHARMACY ORDERED LAB ONE (15:45)
[2017-04-24 16:00] VITALS: BP 158/85; PULSE 108; RESP 20; TEMP 97.6; O2SAT 96
--- NOTE | 2017-04-24 16:37 | HHI.PR ---
Subjective Remarks f/u forearm abscess status post I&D today. Patient stated that he has improved drastically. He stated that he is an IV drug user. Patient has no other complaints. He is afebrile. Objective Vitals Vital Signs Date Time Temp Pulse Resp B/P (MAP) Pulse Ox O2 Delivery O2 Flow Rate FiO2 04/24/17 13:45 84 16 153/88 (109) 95 Room Air 04/24/17 13:30 90 16 146/90 (108) 96 Room Air 04/24/17 13:21 98.6 96 16 144/79 (100) 100 04/24/17 08:00 96.9 75 20 138/72 (94) 98 04/24/17 00:00 98.4 77 20 131/68 (89) 98 04/23/17 20:00 97.9 89 22 134/78 (96) 99 I/O 04/23/17 04/23/17 04/23/17 04/24/17 04/24/17 04/24/17 07:00 15:00 23:00 07:00 15:00 23:00 Intake Total 1300 ml 200 ml 1260 ml 100 ml 1300 ml 100 ml Output Total 20 ml Balance 1300 ml 200 ml 1260 ml 100 ml 1280 ml 100 ml Intake Oral 800 ml 0 ml 0 ml IV Total 1300 ml 200 ml 460 ml 100 ml 100 ml 100 ml Other 1200 ml Output Estimated Blood Loss 20 ml # Voids 2 4 # Bowel Movements 0 Result Diagram: 04/24/17 0701 04/24/17 0707 Objective Remarks GENERAL: in NAD SKIN: B/L bandage in place. Sensation is intact. HEAD: Normocephalic. EYES: No scleral icterus. No injection or drainage. NECK: Supple, trachea midline. No JVD or lymphadenopathy. CARDIOVASCULAR: Regular rate and rhythm without murmurs, gallops, or rubs. RESPIRATORY: Breath sounds equal bilaterally. No accessory muscle use. GASTROINTESTINAL: Abdomen soft, non-tender, nondistended. Medications and IVs Current Medications Piperacillin Sod/ Tazobactam Sod 50 ml @ 100 mls/hr ONCE ONCE IV Last administered on 04/23/17at 02:51; Start 04/23/17 at 02:45; Stop 04/23/17 at 03:14 ; Status DC Vancomycin/Sodium Chloride 200 ml @ 200 mls/hr CONCRETE PRECAST MOULDER IV ; Start 04/23/17 at 02:45; Stop 04/23/17 at 02:45; Status DC Sodium Chloride 1,000 ml @ 999 mls/hr BOLUS ONCE IV Last administered on 04/23at 02:51; Start 04/23/17 at 02:45; Stop 04/23/17 at 03:45; Status DC Vancomycin/Sodium Chloride 200 ml @ 200 mls/hr ONCE ONCE IV ; Start 04/23/17 at 02:45; Stop 04/23/17 at 03:44; Status Cancel Vancomycin HCl 1000 mg/Sodium Chloride 250 ml @ 250 mls/hr ONCE ONCE IV Last administered on 04/23/17at 03:38; Start 04/23/17 at 03:00; Stop 04/23/17 at 03:59 ; Status DC Folic Acid (Folate) 1 mg DAILY PO Last administered on 04/24/17at 09:26; Start 04/23/17 at 09:00; Stop 04/28/17 at 08:59 Thiamine HCl (Vitamin B1) 100 mg DAILY PO Last administered on 04/24/17at 09:26 ; Start 04/23/17 at 09:00 Multivitamins/ Minerals Therapeutic (Theragran M Tab) 1 tab DAILY PO Last administered on 04/24/17at 09:25; Start 04/23/17 at 09:00; Stop 04/28/17 at 08:59 Flumazenil (Romazicon Inj) 0.2 mg Q1M PRN IV PUSH SEE LABEL COMMENTS; Start at 03:45 Lorazepam (Ativan) 1 mg Q4H PRN PO CIWA 8 - 10 Last administered on 04/23/17at 11:44; Start 04/23/17 at 03:45 Lorazepam (Ativan Inj) 1 mg Q4H PRN IV PUSH CIWA 8 - 10; Start 04/23/17 at 03: 45 Lorazepam (Ativan) 2 mg Q2H PRN PO CIWA 11-14; Start 04/23/17 at 03:45 Lorazepam (Ativan Inj) 2 mg Q2H PRN IV PUSH CIWA 11-14; Start 04/23/17 at 03:45 Lorazepam (Ativan Inj) 2 mg Q1H PRN IV PUSH CIWA 15-20; Start 04/23/17 at 03:45 Lorazepam (Ativan Inj) 2 mg Q15M PRN IV PUSH CIWA > 20; Start 04/23/17 at 03:45 Haloperidol Lactate (Haldol Inj) 2 mg Q15M PRN IM SEE LABEL COMMENTS; Start at 03:45 Clonidine (Catapres) 0.1 mg Q8HR PO Last administered on 04/23/17at 13:53; Start 04/23/17 at 06:00; Stop 04/23/17 at 14:19; Status DC Pharmacy Profile Note 0 ml @ 0 mls/hr UNSCH OTHER ; Start 04/23/17 at 03:45 Cefepime HCl 1000 mg/Sodium Chloride 100 ml @ 200 mls/hr Q12H IV Last administered on 04/23/17at 09:51; Start 04/23/17 at 09:00; Stop 04/23/17 at 14:13 ; Status DC Sodium Chloride 1,000 ml @ 100 mls/hr Q10H IV Last administered on 04/24/17at 05:26; Start 04/23/17 at 03:42; Stop 04/24/17 at 13:16; Status DC Sodium Chloride (NS Flush) 2 ml UNSCH PRN IV FLUSH FLUSH AFTER USING IV ACCESS ; Start 04/23/17 at 03:45 Sodium Chloride (NS Flush) 2 ml BID IV FLUSH ; Start 04/23/17 at 09:00 Ondansetron HCl (Zofran Inj) 4 mg Q6H PRN IVP NAUSEA OR VOMITING; Start at 03:45 Acetaminophen (Tylenol) 650 mg Q6H PRN PO FEVER/PAIN SCALE 1 TO 2; Start at 03:45 Oxycodone HCl (Roxicodone) 10 mg Q4H PRN PO PAIN SCALE 6 TO 10 Last administered on 04/24/17at 10:46; Start 04/23/17 at 03:45 Oxycodone HCl (Roxicodone) 5 mg Q4H PRN PO PAIN SCALE 3 TO 5 Last administered on 04/23/17at 11:45; Start 04/23/17 at 03:45 Senna/Docusate Sodium (Elaine-Colace) 1 tab BID PO ; Start 04/23/17 at 09:00 Magnesium Hydroxide (Milk Of Magnesia Liq) 30 ml Q12H PRN PO Mild constipation ; Start 04/23/17 at 03:45 Sennosides (Senokot) 17.2 mg Q12H PRN PO Moderate constipation; Start 04/23/17 at 03:45 Bisacodyl (Dulcolax Supp) 10 mg DAILY PRN RECTAL SEVERE CONSITIPATION; Start at 03:45 Lactulose (Lactulose Liq) 30 ml DAILY PRN PO SEVERE CONSITIPATION; Start at 03:45 Nicotine (Habitrol 21 Mg Patch.24 Hr) 1 patch DAILY PRN T-DERMAL WITHDRAWAL Last administered on 04/24/17at 10:43; Start 04/23/17 at 04:00 Potassium Chloride (KCl) 30 meq ONCE ONCE PO Last administered on 04/23/17at 09 :51; Start 04/23/17 at 09:00; Stop 04/23/17 at 09:01; Status DC Vancomycin HCl 1250 mg/Sodium Chloride 262.5 ml @ 250 mls/hr Q12H IV Last administered on 04/24/17at 16:51; Start 04/23/17 at 16:00 Miscellaneous Information SPECIFIC LAB TO BE HUASM... ONCE ONCE .XX Last administered on 04/24/17at 15:45; Start 04/24/17 at 15:45; Stop 04/24/17 at 15:46 ; Status DC Piperacillin Sod/ Tazobactam Sod 100 ml @ 200 mls/hr Q6H IV Last administered on 04/24/17at 14:30; Start 04/23/17 at 14:00 Clonidine (Catapres) 0.1 mg Q8HR PRN PO SBP>180, DBP>95; Start 04/23/17 at 14: 30 Iohexol (Omnipaque 350 Inj) 75 ml STK-MED ONCE IVCONTRAST Last administered on 04/23/17at 14:57; Start 04/23/17 at 14:57; Stop 04/23/17 at 14:58; Status DC Influenza Virus Vaccine (Flu (Quadrivalent) Vaccine Inj) 0.5 ml ONCE ONCE IM Last administered on 04/24/17at 09:28; Start 04/24/17 at 10:00; Stop 04/24/17 at 10:01; Status DC Pneumococcal Polyvalent Vaccine (Pneumovax-23 Inj) 25 mcg ONCE ONCE IM Last administered on 04/24/17at 09:27; Start 04/24/17 at 10:00; Stop 04/24/17 at 10:01 ; Status DC Lactated Ringer's 1,000 ml @ 30 mls/hr Q24H PRN IV SEE LABEL COMMENTS; Start at 23:30; Stop 04/24/17 at 23:30; Status DC Povidone Iodine (Betadine 5% Antisepsis Kit) 1 applic CONCRETE PRECAST MOULDER PRN EACH NARE SEE LABEL COMMENTS; Start 04/24/17 at 23:30; Stop 04/27/17 at 23:29 Chlorhexidine Gluconate (Chlorhexidine 2% Cloth) 3 pack CONCRETE PRECAST MOULDER PRN TOPICAL SEE LABEL COMMENTS; Start 04/24/17 at 23:30; Stop 04/27/17 at 23:29 Bupivacaine HCl (Marcaine Pf 0.5% Inj) 30 ml STK-MED ONCE .ROUTE ; Start at 11:19; Stop 04/24/17 at 11:20; Status DC Silver Sulfadiazine (Silvadene 1% Cream (400 Gm)) 1 applic ONCE ONCE TOPICAL Last administered on 04/24/17at 13:00; Start 04/24/17 at 13:00; Stop 04/24/17 at 13:01; Status DC Dextrose/Sodium Chloride 1,000 ml @ 100 mls/hr Q10H IV Last administered on at 14:30; Start 04/24/17 at 13:07 Midazolam HCl (Versed Inj) 2 mg STK-MED ONCE .ROUTE ; Start 04/24/17 at 13:29; Stop 04/24/17 at 13:30; Status DC Fentanyl Citrate (fentaNYL INJ) 100 mcg STK-MED ONCE .ROUTE ; Start 04/24/17 at 13:29; Stop 04/24/17 at 13:30; Status DC Ketamine HCl (Ketalar Inj) 500 mg STK-MED ONCE .ROUTE ; Start 04/24/17 at 13:30 ; Stop 04/24/17 at 13:31; Status DC Albuterol Sulfate (*ALBUTEROL NEB PERIprocedure ONLY) 2.5 mg STK-MED ONCE NEB Last administered on 04/24/17at 13:36; Start 04/24/17 at 13:36; Stop 04/24/17 at 13:37; Status DC Miscellaneous Information ALL NURSING DEPARTME... UNSCH PRN .XX SEE LABEL COMMENTS; Start 04/24/17 at 13:21; Stop 04/25/17 at 13:20 A/P Problem List: (1) Sepsis ICD Code: A41.9 - Sepsis, unspecified organism (2) Abscess ICD Code: L02.91 - Cutaneous abscess, unspecified (3) Alcohol abuse ICD Code: F10.10 - Alcohol abuse, uncomplicated (4) IVDU (intravenous drug user) ICD Code: F19.90 - Other psychoactive substance use, unspecified, uncomplicated (5) Tobacco abuse ICD Code: Z72.0 - Tobacco use Assessment and Plan Sepsis: Temp 101.0, HR 115, WBC 16.2, Source-RUE Abscess - follow up on blood/wound culture results - continue on IV abx with Vancomycin and Zosyn. Discontinue cefepime. - IVF for hydration. Abscess: RUE abscess, s/p I&D by patient, +purulent drainage LUE forearm w/ area of erythema/induration - Continue w/ IV Abx - Status post multiple I&D's by Dr. Altman. Hypokalemia: Mild - Replenish as needed. Alcohol Abuse: Drinks 2-8 pints of beer/day. High risk for withdrawal. - CIWA, Seizure Precautions, MVT/Thiamine/Folate - Monitor for signs of withdrawal IVDU: last used 2 days ago, however UDS negative. - Ativan prn for withdrawal. - counselled on cessation Tobacco Abuse: - Pt counselled on cessation. - NicoDerm prn DVT Prophylaxis: SCD/Teds. Candy Villalobos MD Apr 24, 2017 16:37
[2017-04-24] MEDS ORDERED: POVIDONE IODINE 5% (ANTISEPSIS KIT) 4 APPLICATIONS EACH NARE PRN (23:30)
[2017-04-24] MEDS ORDERED: LACTATED RINGER'S 1000 ML IV PRN (23:30)
[2017-04-24] MEDS ORDERED: CHLORHEXIDINE GLUCONATE 2 % 1 PACK (2 CLOTHS) TOPICAL PRN (23:30)
== END 2017-04-24 19:41 | disposition left against medical advice (07) | DRG 854 ==
LOC: NEPE 00:36 → NEDH 03:30 → N07B 15:45
PROVIDERS: ADMIT Family Medicine; ATTEND Family Medicine
PROC: 0JBH0ZZ Excision of Left Lower Arm Subcutaneous Tissue and Fascia, Open Approach (ICD-10-PCS; 2017-04-24)
PROC: 0JDG0ZZ Extraction of Right Lower Arm Subcutaneous Tissue and Fascia, Open Approach (ICD-10-PCS; principal; 2017-04-24 12:16)
DX: A41.9 Sepsis, unspecified organism (principal); L02.413 Cutaneous abscess of right upper limb; L03.113 Cellulitis of right upper limb; L02.414 Cutaneous abscess of left upper limb; F43.10 Post-traumatic stress disorder, unspecified; E87.6 Hypokalemia; F10.10 Alcohol abuse, uncomplicated; F17.210 Nicotine dependence, cigarettes, uncomplicated; F19.90 Other psychoactive substance use, unspecified, uncomplicated; B95.62 Methicillin resistant Staphylococcus aureus infection as the cause of diseases classified elsewhere; F31.9 Bipolar disorder, unspecified; Z87.820 Personal history of traumatic brain injury; Z59.0 Homelessness; Z23 Encounter for immunization
CPT/HCPCS: 71045; 73201; 80053; 80202; 80307; 81001; 82948; 83605; 83690; 83735; 84155; 85025; 85610; 85730; 86140; 86403; 87040; 87070; 87147; 87186; 87205; 88304; 88305; 90686; 90732; 93005; 94664; 96365; J0692; J1100; J1885; J2250; J2405; J2543; J3010; J3370; J7030; J7050; J7120; J7613; Q2038; Q9967